=== PATIENT | male | born 1960 | race Caucasian/White ===

== ENCOUNTER 2024-02-05 00:30 | Emergency (ER) | payer OTHER ==
[~2024-02-05] VITALS: Ht 170.2 cm; Wt 68.0 kg
[2024-02-05 00:52] VITALS: PULSE 71; RESP 16; TEMP 98.7; O2SAT 100
[2024-02-05] MEDS ORDERED: MEDROL4 M2 PO (02:11)
[2024-02-05] MEDS: METHYLPREDNISOLONE SOD SUCC 125 MG/2ML VIAL IM ONE (02:12)
== END 2024-02-05 02:20 | disposition home or self-care (01) ==
LOC: ER 02:08
DX: L25.9 Unspecified contact dermatitis, unspecified cause (principal); E78.5 Hyperlipidemia, unspecified; I25.10 Atherosclerotic heart disease of native coronary artery without angina pectoris; F31.9 Bipolar disorder, unspecified; I25.2 Old myocardial infarction; F17.210 Nicotine dependence, cigarettes, uncomplicated
CPT/HCPCS: 99283; J2919